=== PATIENT | male | born 1965 | race Caucasian/White ===

== ENCOUNTER 2017-01-25 11:16 | Emergency (ER) | payer MEDICARE ==
[2017-01-25 11:31] VITALS: BP 150/93
--- NOTE | 2017-01-25 12:35 | EDM.PDOC ---
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 He comes in with a bruise to that finger and a subungual hematoma that really isn't a laceration. He's having pain he has a couple of tense blood blisters in the subungual hematoma notably is causing his pain he doesn't know his last tetanus but he'll check on Friday with the [employer] and if he is due that he'll make arrangements to get that done. He thinks he is up-to-date. No other injuries. Does have a history of a stroke in the past.] Review of systems: As per history of present illness and below otherwise all systems reviewed and negative. Past medical history: As per history of present illness and as reviewed below otherwise noncontributory. Surgical history: As per history of present illness and as reviewed below otherwise noncontributory. Social history: No reported history of drug or alcohol abuse. Family history: As per history of present illness and as reviewed below otherwise noncontributory. Physical exam: HEENT: Atraumatic, normocephalic, pupils reactive, negative for conjunctival pallor or scleral icterus, mucous membranes moist, throat clear, neck supple, nontender, trachea midline. Lungs: Clear to auscultation, breath sounds equal bilaterally, chest nontender. Heart: S1S2, regular, negative for clicks, rubs, or JVD. Abdomen: Soft, nondistended, nontender. Negative for masses or hepatosplenomegaly. Negative for costovertebral tenderness. Pelvis: Stable nontender. Genitourinary: Deferred. Rectal: Deferred. Extremities: Examination of his finger again shows a subungual hematoma and a couple of blood blisters that are tense. The subungual hematoma and these too tense blood blisters were relieved with a hot wire loop and he felt considerably better after this procedure was done. Neuro: Awake, alert, oriented. Exam nonfocal. 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 Diagnostics: [X-rays reveal a disruption of his distal tuft the fragments are relatively nondisplaced] Therapeutics: [] Impression: [Blunt trauma injury to the right index finger distally with subungual hematoma and subcutaneous tense hematomas to the finger.] Plan: [We are placing a tube gauze type dressing after cleansing his wound and then also supporting it with a metal's backed foam splint and a 2 inch Amos wrap to secure it. He can leave this in place for a week before removing and then continuing with antibiotic ointment and Band-Aids until it heals. Pain meds were offered but he declined.] Definitive disposition and diagnosis as appropriate pending reevaluation and review of above. - Related Data Allergies Allergy/AdvReac Type Severity Reaction Status Date / Time No Known Allergies Allergy Verified 01/25/17 11:31 Home Meds: Home Meds levETIRAcetam [Keppra] 01/25/17 [History] Past Medical History Cardiovascular History: Reports: Congenital Septal Defect Neurological History: Reports: CVA, Seizure Social & Family History - Tobacco Use Smoking Status *Q: Never Smoker Review of Systems - Review of Systems Review Of Systems: ROS reveals no pertinent complaints other than HPI. ED EXAM, GENERAL - Physical Exam Exam: See Below Course - Vital Signs Last Recorded V/S: Last Vital Signs Temp 36.3 C 01/25/17 11:37 Pulse 78 01/25/17 11:37 Resp 16 01/25/17 11:37 BP 150/93 H 01/25/17 11:37 Pulse Ox 97 01/25/17 11:37 - Orders/Labs/Meds Orders: Active Orders 24 hr Category Date Time Status Fingers Second Digit Rt F6 [CR] Stat Exams 01/25/17 11:48 Taken Departure - Departure Time of Disposition: 12:35 Disposition: Home, Self-Care 01 Condition: Good Clinical Impression: Injury of right index finger Qualifiers: Encounter type: initial encounter Qualified Code(s): S69.91XA - Unspecified injury of right wrist, hand and finger(s), initial encounter - Discharge Information Forms: ED Department Discharge Additional Instructions: You can leave this splint in place for about a week and then remove it and just use antibiotic ointment and Band-Aids on your finger until it heals up. He should regain full function of that finger. If any problems ensue or any problems or questions you can follow-up with your primary care doctor. - My Orders Last 24 Hours: My Active Orders 01/25/17 11:48 Fingers Second Digit Rt F6 [CR] Stat - Assessment/Plan Last 24 Hours: My Active Orders 01/25/17 11:48 Fingers Second Digit Rt F6 [CR] Stat
--- NOTE | 2017-01-27 08:44 | CR ---
Fingers Second Digit Rt F6 INDICATION: blunt trauma FINDINGS: Acute, mildly displaced oblique fracture through the ulnar aspect of the distal tuft of th e right second digit.
== END 2017-01-25 12:50 | disposition home or self-care (01) ==
LOC: JP.ED 11:16
DX: S60.121A Contusion of right index finger with damage to nail, initial encounter (principal); Z86.73 Personal history of transient ischemic attack (TIA), and cerebral infarction without residual deficits; W28.XXXA Contact with powered lawn mower, initial encounter
CPT/HCPCS: 11740; 73140-26-F6; 73140-F6; 99283-25; 99284-25